=== PATIENT | male | born 1985 | race Caucasian/White ===

== ENCOUNTER 2020-04-05 15:21 | Emergency (ER) | payer MEDICAID ==
[~2020-04-05] VITALS: Ht 172.7 cm; Wt 81.6 kg
[2020-04-05 15:30] VITALS: BP_SYST 199
[2020-04-05] MEDS ORDERED: cloNIDine HCL 0.1 MG TABLET PO ONE ×2 (15:45→17:00)
[2020-04-05] MEDS ORDERED: traMADol HCL HCL 50 MG TABLET (ULTRAM) PO ONE (15:45)
[2020-04-05 18:01] VITALS: BP_SYST 145
== END 2020-04-05 18:01 | disposition home or self-care (01) ==
LOC: SED 15:21
DX: M87.9 Osteonecrosis, unspecified (principal); I10 Essential (primary) hypertension
CPT/HCPCS: 99284